=== PATIENT | male | born 1945 | race Caucasian/White ===

== ENCOUNTER → 2016-12-20 | Outpatient (CLI) | payer OTHER ==
--- NOTE | 2016-12-20 13:17 | DIAGNOSTIC IMAGING REPORT ---
RIGHT TIBIA/FIBULA 2 VIEWS HISTORY: Right lower leg INJURY Right COMPARISON: None. FINDINGS: No fracture or dislocation within the right tibia or fibula. Mild anterior soft tissue swelling. No radiopaque foreign bodies. IMPRESSION: No fractures. Electronically signed by: Hossein Hall M.D. 12/20/2016 1:16 PM Dictated Date/Time: 12/20/2016 1:14 PM
== END | disposition home or self-care (01) ==
LOC: C.RAD 12:29
PROVIDERS: ATTEND Physician Assistant Medical
DX: S89.91XD Unspecified injury of right lower leg, subsequent encounter (principal); X58.XXXD Exposure to other specified factors, subsequent encounter